=== PATIENT | female | born 1950 | race Caucasian/White ===

== ENCOUNTER → 2023-06-14 | Outpatient (CLI) | payer MEDICARE ==
[~2023-06-14] MED LIST: IOHEXOL 350 MG/ML 100ML INFUS..BTL IV ONE
== END | disposition home or self-care (01) ==
LOC: RAH 07:51
PROVIDERS: ATTEND Internal Medicine Cardiovascular Disease
DX: M47.815 Spondylosis without myelopathy or radiculopathy, thoracolumbar region (principal); K44.9 Diaphragmatic hernia without obstruction or gangrene; R07.9 Chest pain, unspecified
CPT/HCPCS: 75574; Q9967